=== PATIENT | male | born 1975 | race Caucasian/White ===

== ENCOUNTER 2023-06-16 09:18 | Outpatient (OUT) | payer OTHER, SELFPAY ==
[2023-06-16 09:37] LABS: Basophils Absolute Auto 0.1 10^3/uL (0.0-0.1); Basophils Percent Auto 0.5 % (0.2-2.0); Eosinophils Absolute Auto 0.3 10^3/uL (0.0-0.7); Eosinophils Percent Auto 2.6 % (0.9-7.0); Hemoglobin 16.2 g/dL (14.0-18.0); Immature Granulocytes Abs Auto 0.04 10^3/uL (0.00-0.03); Immature Granulocytes Pct Auto 0.4 % (0.0-0.5); Lymphocytes Absolute Auto 2.9 10^3/uL (1.2-3.8); Lymphocytes Percent Auto 26.8 % (20.5-60.0); Mean Corpuscular HGB Conc 33.1 g/dL (29.9-35.2); Mean Corpuscular Hemoglobin 31.8 pg (25.9-34.0); Mean Corpuscular Volume 96.3 fL (80.0-94.0); Monocytes Absolute Auto 0.8 10^3/uL (0.3-0.8); Monocytes Percent Auto 7.3 % (1.7-12.0); Neutrophils Absolute Auto 6.8 10^3/uL (1.4-6.5); Neutrophils Percent Auto 62.4 % (43.0-75.0); Platelet Count 241 10^3/uL (150-450); Red Blood Count 5.09 10^6/uL (4.70-6.10); Red Cell Distribution Width 12.9 % (11.0-15.0); White Blood Count 10.9 10^3/uL (4.0-11.0)
[2023-06-16 09:54] LABS: Estimated Average Glucose 166 mg/dL; Glycohemoglobin A1C 7.4 % (4.5-6.2)
[2023-06-16 10:57] LABS: Anion Gap 10.6; BUN Creatinine Ratio 19.4; Calcium 8.9 mg/dL (8.5-10.1); Carbon Dioxide 28.3 mmol/L (21.0-32.0); Chloride 102 mmol/L (98-107); Estimated GFR (African America >60 (>=60); Estimated GFR (Non-African Ame >60 (>=60); Glucose 256 mg/dL (74-106); Potassium 3.9 mmol/L (3.5-5.1); Sodium 137 mmol/L (136-145); Thyroid Stimulating Hormone 1.093 uIU/mL (0.358-3.740)
== END 2023-06-16 09:19 | disposition home or self-care (01) ==
LOC: LAB 09:24
PROVIDERS: PCP Family Medicine; Visit Provider Family Medicine
DX: E10.9 Type 1 diabetes mellitus without complications (principal)
CPT/HCPCS: 36415; 80048; 83036; 84443; 85025

== ENCOUNTER 2024-12-14 13:58 | Outpatient (OUT) | payer OTHER, SELFPAY ==
--- OUTSIDE RECORDS SUMMARY | 2024-12-14 14:01 | XMS_ITS | Clinical Summary ---
Author Organization [facility] Address [address] [place] [address] Phone Care Team Providers Care Heating And Ventilating Tender Name Role Phone Leonor Duncan MD Primary Care Provider [phone] Allergies No known active allergies Medications lisinopril 20 mg tablet Take 1 tablet (20 mg) by mouth once daily. Active insulin asp prt-insulin aspart (NovoLOG Mix 70-30 U-100 Insuln) 100 unit/mL (70-30) injection Inject under the skin. Take as directed per insulin instructions. Active insulin glargine (Lantus U-100 Insulin) 100 unit/mL injection Inject under the skin. Take as directed per insulin instructions. Active carvedilol (Coreg) 6.25 mg tabletIndications :Essential hypertension Take 1 tablet (6.25 mg) by mouth 2 times a day with meals. 60 tablet 11 Active Active Problems Problem Noted Date Diagnosed Date Smoker 08/05/2023 Insulin dependent type 1 diabetes mellitus (Mult i) 08/05/2023 Essential hypertension 08/05/2023 Medication course changed 08/05/2023 Palpitations 08/05/2023 Uncontrolled hypertension 08/05/2023 Shortness of breath 08/05/2023 Family History Medical History Relation Name Comments No Known Problems Brother Heart attack Father No Known Problems Mother No Known Problems Sister Relation Name Status Comments Brother Father Mother Sister Social History Tobacco Use Types Packs/Day Years Used Date Smoking Tobacco: Every Day Cigarettes Smokeless Tobacco: Never Tobacco Cessation:Ready to Q uit: No; Counseling Given: Yes Alcohol Use Standard Drinks/Week Comments Yes 0 (1 standard drink = 0.6 oz pur e alcohol) socially Sex and Gender Information Value Date Recorded Sex Assigned at Not on file Legal Sex Male 10:08 PM EST Gender Identity Not on file Sexual Orientation Not on file Last Filed Vital Signs Vital Sign Reading Time Taken Comments Blood Pressure 162/92 08/20/2023 7:45 AM EST Pulse 77 08/05/2023 9:56 AM EST Temperature - - Respiratory Rate - - Oxygen Saturation - - Inhaled Oxygen Concentration - - Weight 73.9 kg (163 lb) 08/20/2023 7:45 AM EST Height 175.3 cm (5' 9 ) 08/20/2023 7:45 AM EST Body Mass Index 24.07 08/20/2023 7:45 AM EST Plan of Treatment Health Maintenance Due Date Last Done Comments CT Colonography 1973 Colonoscopy 1973 Colorectal Cancer Screening 1973 Diabetes: Celiac Disease Screening 1973 Diabetes: Hemoglobin A1C 1973 Diabetes: Urine Protein Screening 1973 FIT-DNA (Cologuard) 1973 FIT 1973 HIV Screening 1973 Lipid Panel 1973 Sigmoidoscopy 1973 TSH Level 1973 Vitamin B-12 1973 Yearly Adult Physical 1973 MMR Vaccines (1 of 1 - Stand mark series) 1974 Diabetes: Retinopathy Screening 10/14/1983 Hepatitis C Screening 10/14/1991 Hepatitis B Vaccines (1 of 3 - 19+ 3-dose series) 1992 Pneumococcal Vaccine (1 of 2 - PCV) 1992 DTaP/Tdap/Td Vaccines (1 - Tdap) 10/14/1995 Zoster Vaccines (1 of 2) 10/14/2023 COVID-19 Vaccine (1 - 2023-2 5 season) 2024 Influenza Vaccine (Season Ended) 2025 HIB Vaccines Aged Out No longer eligi ble based on patient's age to complete this topic HPV Vaccines Aged Out No longer eligi ble based on patient's age to complete this topic Hepatitis A Vaccines Aged Out No long er eligible based on patient's age to complete this topic IPV Vaccines Aged Out No longer eligi ble based on patient's age to complete this topic Meningococcal Vaccine Aged Out No conchita amanda eligible based on patient's age to complete this topic Rotavirus Vaccines Aged Out No longer eligible based on patient's age to complete this topic Insurance Member Subscriber Plan / Payer (Ef fective 2023-Present) Name:Kristian Coburn Relation to Subscriber:Self Name:Kristian Coburn Payer ID:Not on file Type:Not on file Address: [id number] [facility] MED Member Subscriber Plan / Payer (Ef fective 2023-Present) Name:Almas Kristian Jt Relation to Subscriber:Self Name:Kristian Coburn Payer ID:Not on file Type:Not on file Address: [id number] [facility] MED Care Teams Heating And Ventilating Tender Relationship Specialty Start Date End Date Leonor Duncan MD [address] [place] [address] PCP - General Family Medicine 08/05/23
[2024-12-14 14:29] LABS: Estimated Average Glucose 160 mg/dL; Glycohemoglobin A1C 7.2 % (4.5-6.2)
[2024-12-14 14:50] LABS: Thyroid Stimulating Hormone 0.862 uIU/mL (0.358-3.740)
[2024-12-14 15:30] LABS: Prostate Specific Antigen Scrn 0.68 ng/mL (<=4.00)
[2024-12-14 15:38] LABS: Free T4 0.84 ng/dL (0.76-1.46)
[2024-12-15 04:07] LABS: Vitamin B12 336 pg/mL (232-1245)
== END 2024-12-14 13:59 | disposition home or self-care (01) ==
LOC: LAB 14:00
PROVIDERS: PCP Family Medicine; Visit Provider Family Medicine
DX: E10.59 Type 1 diabetes mellitus with other circulatory complications (principal); R53.83 Other fatigue; Z12.5 Encounter for screening for malignant neoplasm of prostate; H53.8 Other visual disturbances; R10.9 Unspecified abdominal pain
CPT/HCPCS: 36415; 82607; 82728; 82746; 83036; 84439; 84443; G0103

== ENCOUNTER 2025-02-24 07:32 | Outpatient (OUT) | payer OTHER, SELFPAY ==
--- OUTSIDE RECORDS SUMMARY | 2025-02-24 07:36 | XMS_ITS | Clinical Summary ---
Author Organization [facility] Address [address] [place] [address] Phone Care Team Providers Care Machine Operator Packaging Name Role Phone Leonor Duncan MD Primary Care Provider [phone] Allergies No known active allergies Medications lisinopril [...] 1992 DTaP/Tdap/Td Vaccines (1 - Tdap) 10/14/1995 PSA Prostate Cancer Screening 10/14/2023 Zoster Vaccines (1 of 2) 10/14/2023 COVID-19 Vaccine (1 - 2023-2 5 season) 2024 Influenza Vaccine (#1) 2025 HIB Vaccines Aged Out No longer [...] patient's age to complete this topic Insurance [facility] [employer] MED [employer] MED Care Teams Machine Operator Packaging Relationship Specialty Start Date End Date Leonor Duncan MD [address] [place] [address] PCP - General Family Medicine 08/05/23
--- OUTSIDE RECORDS SUMMARY | 2025-02-24 07:36 | XMS_ITS | Clinical Summary ---
Author Organization [facility] Address [address] [place] [address] Care Team Providers Care Glue Maker Name Role Phone Unallocated, Noms Provider Primary Care Provi lacie Allergies Active Allergy Reactions Criticality Noted Date Comments Oxycodone-Acetaminophen Shortness of breath High 10/2023 Medications Insulin Glargine (LANTUS SC) Lantus Active insulin aspart protamine-insul in aspart (NovoLOG Mix 70-30) (70-30) 100 UNIT/ML injection Inject under the skin Active lisinopril 20 MG tablet TAKE 1 TABLET BY MOUTH EVERY DAY FOR 90 DAYS Active fluticasone (Flonase) 50 MCG/ACT nasal sprayIndication s:Non-recurrent acute serous otitis media of both ears Administer 2 sprays into each nostril Daily as needed for rhinitis Shake gently. Before first use, prime pump. After use, clean tip and replace cap. 16 g Active Social History Tobacco Use Types Packs/Day Years Used Date Smoking Tobacco: Never Assessed Sex and Gender Information Value Date Recorded Sex Assigned at Not on file Legal Sex Male 7:14 PM EDT Gender Identity Not on file Sexual Orientation Not on file Last Filed Vital Signs Vital Sign Reading Time Taken Comments Blood Pressure 120/80 11/27/2023 10:01 AM EDT Pulse 80 11/27/2023 10:01 AM EDT Temperature 36.7 C (98 F) 11/27/2023 10:01 AM EDT Respiratory Rate - - Oxygen Saturation 98% 11/27/2023 10:01 AM EDT Inhaled Oxygen Concentration - - Weight 76.7 kg (169 lb) 11/27/2023 10:01 AM EDT Height 172.7 cm (5' 8 ) 2022 12:00 PM EDT Body Mass Index 25.7 2022 12:00 PM EDT Plan of Treatment Health Maintenance Due Date Last Done Comments CT Colonography 1973 Colonoscopy 1973 Colorectal Cancer Screening 1973 FIT-DNA 1973 FIT 1973 FOBT 1973 Sigmoidoscopy 1973 Influenza Vaccine (#1) 2025 Insurance [employer] Care Teams Glue Maker Relationship Specialty Start Date End Date Unallocated, Noms MD Gray [address] [place], [place] [id number] PCP - General Family Medicine 11/27/23
--- OUTSIDE RECORDS SUMMARY | 2025-02-24 07:36 | XMS_ITS | CCD ---
Author Organization [facility] Inform ion Partnership [facility] Care Team Providers Care Client Relations Representative Name Role Phone NO FAMILY, PHYSICIAN Primary Care Provider Unava DENY Conte Emergency Provider Leonor Cardozo Unavailable Odin Wallace Unavailable Leonor Cardozo MD Primary Care Provider KJ DOSHI Attending Unavailable LEONOR CARDOZO Primary Care UnavailKJ Fair Referring Unavailable KJ DOSHI Referring Unavailable LEONOR CARDOZO Primary Care Unavaila VINCENT Cherry Attending Unavailable KJ DOSHI Referring Unavailable LEONOR CARDOZO Primary Care Unavailable Ellie Cardoza Attending Unavailable Ellie Cardoza Admitting Unavailable NO FAMILY, PHYSICIAN Primary Care Unavailable Leonor Cardozo MD Primary Care Provider [phone] Leonor Cardozo MD Attending Provider [phone] Allergies Allergy Classification Reported Allergen(s) Allergy Type Date of Onset Reaction(s) Facility (4 sources) Acetaminophen; Translations: [acetaminophen] Drug Allergy 06-14-20 Anaphylaxis [facility] (4 sources) oxyCODONE; Translations: [oxycodone] Drug Allergy 06-14-20 Anaphylaxis [facility] (16 sources) Acetaminophen / oxyCODONE Drug Allergy Unknown [facility] Other (2 sources) patient allergy list reviewed by nurse or physicia Propensity to adverse reactions 06-17-20 15 Comment:Done [facility] Other Medications Current Medications Medication Drug Class(es) Dates Sig (Normalized) Sig (Original) amoxicillin 875 mg / clavulanate 125 mg oral tablet (2 sources) Penicillin-class Antibacterial Start: 03-03-2023 take 1 tablet by mouth every twelve hours azithromycin 250 mg oral tablet (4 sources) Macrolide Antimicrobial Start: 11-23-2022 carvedilol 6.25 mg oral tablet (3 sources) alpha-Adrenergic [place], beta-Adrenergic [place] Start: 08-05-2023 End: 08-04-2024 take 1 tablet by mouth twice daily at mealtime carvedilol (Coreg) 6.25 mg tablet Indications: Essential hypertension Take 1 tablet (6.25 mg) by mouth 2 times a day with meals. 60 tablet 11 08/05/2023 08/04/2024 Active fluticasone propionate 0.05 mg/actuat metered dose nasal spray (2 sources) Corticosteroid Start: 03-03-2023 take 1 spray(s) nasal route once daily insulin aspart protamine, human 70 unt/ml / insulin aspart, human 30 unt/ml injectable suspension (3 sources) Insulin Analog insulin asp prt-insulin aspart (NovoLOG Mix 70-30 U-100 Insuln) 100 unit/mL (70-30) injection Inject under the skin. Take as directed per insulin instructions. 0 Active Insulin Aspart U-100 (Novolog U-100 Insulin Aspart) 100 unit/mL solution (8 sources) Start: 07-07-2024 inject 60 [IU] by subcutaneous injection three times daily Insulin Aspart U-100 (Novolog U-100 Insulin Aspart) 100 unit/mL solution Active 60 UNIT SUBCUT Three times daily 162 July 07, 2024 12:32pm per sliding scale Start: 07-07-2024 End: 07-07-2024 inject 60 [IU] by subcutaneous injection three times daily Insulin Aspart U-100 (Novolog U-100 Insulin Aspart) 100 unit/mL solution Discontinued 60 UNIT SUBCUT Three times daily 54 July 07, 2024 11:31am July 07, 2024 12:33pm per sliding scale Start: 07-04-2024 End: 07-07-2024 inject 30 [IU] by subcutaneous injection three times daily Insulin Aspart U-100 (Novolog U-100 Insulin Aspart) 100 unit/mL solution Discontinued 30 UNIT SUBCUT Use as Directed July 04, 2024 9:50am July 07, 2024 11:32am 30 units TID sliding scale as directed Start: 06-27-2024 End: 07-04-2024 inject 30 [IU] by subcutaneous injection three times daily Insulin Aspart U-100 (Novolog U-100 Insulin Aspart) 100 unit/mL solution Discontinued 1 sliding scale dose SUBCUT Use as Directed June 27, 2024 5:07pm July 04, 2024 9:51am 30 units TID sliding scale as directed Start: 03-13-2024 End: 06-27-2024 inject 20 [IU] by subcutaneous injection three times daily Insulin Aspart U-100 (Novolog U-100 Insulin Aspart) 100 unit/mL solution Discontinued 1 sliding scale dose SUBCUT Use as Directed March 13, 2024 9:46am June 27, 2024 5:08pm 20 units TID sliding scale as directed Start: 10-23-2023 End: 03-13-2024 inject 20 [IU] by subcutaneous injection three times daily Insulin Aspart U-100 (Novolog U-100 Insulin Aspart) 100 unit/mL solution Discontinued 1 sliding scale dose SUBCUT Use as Directed October 23, 2023 9:25am March 13, 2024 9:46am 20 units TID sliding scale as directed Start: 06-14-2022 End: 10-23-2023 inject 20 [IU] by subcutaneous injection three times daily Insulin Aspart U-100 (Novolog U-100 Insulin Aspart) 100 unit/mL solution Discontinued 1 sliding scale dose SUBCUT Use as Directed June 14, 2022 1:00am October 23, 2023 9:25am 20 units TID sliding scale as directed Start: 06-14-2022 inject 20 [IU] by marsh bcutaneous injection three times daily Insulin Aspart U-100 (Novolog U-100 Insulin Aspart) 100 unit/mL solution Active 1 sliding scale dose SUBCUT Use as Directed June 14, 2022 12:00am 20 units TID sliding scale as directed insulin aspart, human 100 unt/ml injectable solution (20 sources) Insulin Analog Start: 07-07-2024 End: 02-01-2025 inject 60 [IU] by subcutaneous injection three times daily Insulin Aspart U-100 (Novolog U-100 Insulin Aspart) 100 unit/mL solution Active 60 UNIT SUBCUT Three times daily 162 90 February 01, 2025 10:39am per sliding scale Complies with drug therapy Start: 06-27-2024 End: 07-07-2024 inject 30 [IU] by subcutaneous injection three times daily Insulin Aspart U-100 (Novolog U-100 Insulin Aspart) 100 unit/mL solution Discontinued 30 UNIT SUBCUT Use as Directed July 04, 2024 9:50am July 07, 2024 11:32am 30 units TID sliding scale as directed Start: 06-14-2022 End: 06-27-2024 inject 20 [IU] by subcutaneous injection three times daily Insulin Aspart U-100 (Novolog U-100 Insulin Aspart) 100 unit/mL solution Discontinued 1 sliding scale dose SUBCUT Use as Directed March 13, 2024 9:46am June 27, 2024 5:08pm 20 units TID sliding scale as directed NovoLOG 100 UNIT /ML as directed Injection tid for 90 days 4 vials/month - uses up to 60 units/day E10.9 Active NovoLOG 100 UNIT /ML as directed Injection tid for 90 days 4 vials/month - uses up to 60 units/day E10.9 Active NovoLOG 100 UNIT /ML as directed Injection Active insulin glargine 100 unt/ml injectable solution (15 sources) Insulin Analog Start: 03-13-2024 End: 02-14-2025 inject 20 [IU] by subcutaneous injection twice daily Insulin Glargine (Lantus U-100 Insulin) 100 unit/mL solution Active 0 .ROUTE .COMPLEX February 14, 2025 2:12pm INJECT 20 UNITS TWICE DAILY SUBCUTANEOUSLY Complies with drug therapy Start: 02-28-2024 End: 03-13-2024 inject 15 [IU] by subcutaneous injection twice daily Insulin Glargine (Lantus U-100 Insulin) 100 unit/mL solution Discontinued 0 .ROUTE .COMPLEX February 28, 2024 11:34am March 13, 2024 9:47am INJECT 15 UNITS SUBCUTANEOUSLY TWICE DAILY Start: 02-28-2024 End: 02-28-2024 inject 1 [IU] by subcutaneous injection twice daily Insulin Glargine (Lantus U-100 Insulin) 100 unit/mL solution Discontinued 1 UNIT SUBCUT Twice daily February 28, 2024 12:00am February 28, 2024 11:34am Start: 06-16-2023 inject 15 [IU] by marsh bcutaneous injection twice daily Lantus 100 UNIT/ML 15 units Subcutaneous twice daily for 30 days May, Active insulin glargine (Lantus U-100 Insulin) 100 unit/mL injection Inject under the skin. Take as directed per insulin instructions. 0 Active Insulin Glargine (Lantus U-100 Insulin) 100 unit/mL solution (4 sources) Start: 09-08-2024 inject 20 [IU] by subcutaneous injection twice daily Insulin Glargine (Lantus U-100 Insulin) 100 unit/mL solution Active 0 .ROUTE .COMPLEX September 08, 2024 1:43pm INJECT 20 UNITS TWICE DAILY SUBCUTANEOUSLY Start: 06-20-2024 End: 09-08-2024 inject 20 [IU] by subcutaneous injection twice daily Insulin Glargine (Lantus U-100 Insulin) 100 unit/mL solution Discontinued 0 .ROUTE .COMPLEX June 20, 2024 9:24am September 08, 2024 1:43pm INJECT 20 UNITS TWICE DAILY SUBCUTANEOUSLY Start: 03-13-2024 End: 06-20-2024 inject 20 [IU] by subcutaneous injection twice daily Insulin Glargine (Lantus U-100 Insulin) 100 unit/mL solution Discontinued 0 .ROUTE .COMPLEX 2 March 13, 2024 9:47am June 20, 2024 9:24am INJECT 20 UNITS SUBCUTANEOUSLY TWICE DAILY Start: 02-28-2024 End: 02-28-2024 inject 1 [IU] by subcutaneous injection twice daily Insulin Glargine (Lantus U-100 Insulin) 100 unit/mL solution Discontinued 1 UNIT SUBCUT Twice daily February 28, 2024 12:00am February 28, 2024 11:34am Lantus 15 units (16 sources) Lantus 15 units 0.1 ml Subcutaneous AM&PM for 90 days Active Lantus 15 units 0.1 ml Subcutaneous AM&PM for 30 day(s) Active lisinopril 20 mg oral tablet (7 sources) Angiotensin Converting Enzyme Inhibitor Start: 12-13-2024 take 1 tablet by mouth once daily Lisinopril 20 mg tablet Active 1 TAB PO Daily December 13, 2024 12:00am Free[employer] tablet Orally Once a day; Note: Source Status: Refill; Refills: 1; Qty: 90 Tablet; Provider: Perla Waters Complies with drug therapy Start: 07-28-2023 take 1 tablet by eddie th every twenty-four hours Lisinopril 20 MG 1 tablet Orally Once a day for 30 day(s) Jul, Active magnesium oxide 400 mg oral tablet (3 sources) Start: 08-05-2023 End: 08-04-2024 take 1 tablet by mouth once daily magnesium oxide (Mag-Ox) 400 mg (241.3 mg magnesium) tablet Indications: Essential hypertension , Type 1 diabetes mellitus without complication (CMS/HCC) , Palpitations Take 1 tablet (400 mg) by mouth once daily. 30 tablet 11 08/05/2023 08/04/2024 Active paxlovid (300/100) 20 x 150 mg & 10 x 100mg tablet therapy pack (3 sources) Paxlovid (300/10 0) 20 x 150 MG & 10 x 100MG as directed Orally Active valACYclovir 1000 mg oral tablet (1 source) Herpesvirus Nucleoside Analog DNA Polymerase Inhibitor, Herpes Simplex Virus Nucleoside Analog DNA Polymerase Inhibitor, Herpes Zoster Virus Nucleoside Analog DNA Polymerase Inhibitor Start: 01-17-2025 Valacyclovir (Valtrex) 1 gram tablet Active 2000 MG PO Twice daily January 17, 2025 12:00am Complies with drug therapy 24 hr venlafaxine 37.5 mg extended release oral capsule (9 sources) Serotonin and Norepinephrine Reuptake Inhibitor Start: 07-24-2024 End: 01-17-2025 take 1 capsule by mouth once daily Venlafaxine 37.5 mg capsule,extended release 24hr Active 0 .ROUTE .COMPLEX January 17, 2025 12:28pm TAKE 1 CAPSULE BY MOUTH EVERY DAY Complies with drug therapy Start: 07-24-2024 End: 10-23-2024 take 1 capsule by mouth once daily Venlafaxine 37.5 mg capsule,extended release 24hr Discontinued 0 .ROUTE .COMPLEX July 24, 2024 5:43pm October 23, 2024 9:07am TAKE 1 CAPSULE BY MOUTH EVERY DAY Start: 06-27-2024 End: 07-24-2024 take 1 capsule by mouth once daily Venlafaxine (Effexor Xr) 37.5 mg capsule,extended release 24hr Discontinued 37.5 MG PO Daily June 27, 2024 5:15pm July 24, 2024 5:43pm Completed/Discontinued Medications Medication Drug Class(es) Dates Sig (Normalized) Sig (Original) atenolol 25 mg oral tablet (6 sources) beta-Adrenergic [place] take 1 tablet by mouth every twenty-four hours Atenolol 25 MG 1 tablet Orally Once a day for 30 day(s) Not-Taking atorvastatin 20 mg oral tablet (6 sources) HMG-CoA Reductase Inhibitor take 1 tablet by mouth every twenty-four hours Atorvastatin Calcium 20 MG 1 tablet Orally Once a day Not-Taking enalapril maleate 5 mg oral tablet (6 sources) Angiotensin Converting Enzyme Inhibitor take 1 tablet by mouth twice daily Enalapril Maleate 5 MG 1 tablet Orally Twice a day for 90 days Not-Taking insulin lispro 100 unt/ml injectable solution (6 sources) Insulin Analog HumaLOG 100 UNIT/ML as directed Subcutaneous Not-Taking lovastatin 40 mg oral tablet (6 sources) HMG-CoA Reductase Inhibitor take 1 tablet by mouth every twenty-four hours Lovastatin 40 MG 1 tablet with a meal Orally Once a day for 30 day(s) Not-Taking sildenafil 50 mg oral tablet (20 sources) Phosphodiesterase 5 Inhibitor Start: 02-24-2024 End: 01-19-2025 take 1 tablet by mouth once daily as needed Sildenafil 50 mg tablet Discontinued 0 .ROUTE .COMPLEX June 27, 2024 5:15pm August 01, 2024 10:53am TAKE 1 TABLET BY MOUTH DAILY NEEDED FOR SEXUAL ACTIVITY Start: 11-02-2023 End: 02-24-2024 take 1 tablet by mouth once daily as needed Sildenafil 50 mg tablet Discontinued 50 MG PO Daily as needed for sexual activity November 03, 2023 10:19am January 06, 2024 3:16pm Start: 08-13-2022 take 1 tablet by eddie th every twenty-four hours Sildenafil Citrate 50 MG 1 tablet as needed Orally Once a day for 30 day(s) Jul, Active Problems Active Problems Problem Classification Problem Date Documented Date Episodic/Chronic Abdominal pain (18 sources) Abdominal pain; Translations: [Abdominal pain] 08-31-2024 Episodic Administrative/social admission (3 sources) Repeated prescription; Translations: [Encounter for issue of repeat prescription] 06-14-2022 Episodic Anxiety disorders (2 sources) Anxiety; Translations: [Anxiety disorder, unspecified] 06-28-2024 Chronic Blindness and vision defects (2 sources) Blurring of visual image; Translations: [Other visual disturbances] 08-31-2024 Episodic Chronic obstructive pulmonary disease and bronchiectasis (1 source) Bronchitis, not specified as acute or chronic Episodic Conditions associated with dizziness or vertigo (3 sources) Dizziness; Translations: [Dizziness and giddiness] 09-19-2024 Episodic Diabetes mellitus without complication (20 sources) Diabetes mellitus; Translations: [Type 2 diabetes mellitus without complications] Onset: 08-04-2013 06-14-2022 Chronic Essential hypertension (9 sources) Essential hypertension; Translations: [Essential (primary) hypertension] Onset: 08-05-2023 08-05-2023 Chronic Malaise and fatigue (5 sources) Fatigue; Translations: [Other fatigue] 12-14-2024 Episodic Nonspecific chest pain (1 source) Chest pain, unspecified Episodic Other aftercare (4 sources) Treatment changed; Translations: [Other nursing home (current) drug therapy] Onset: 08-05-2023 08-05-2023 Episodic Other aftercare (2 sources) Other nursing home (current) drug therapy; Translations: [Other intermediate school teacher (current) drug therapy] Onset: 08-05-2023 Episodic Other circulatory disease (2 sources) Elevated blood-pressure reading without diagnosis of hypertension; Translations: [Elevated blood-pressure reading, without diagnosis of hypertension] Episodic Other male genital disorders (18 sources) Secondary erectile dysfunction; Translations: [Erectile dysfunction due to diseases classified elsewhere] 06-28-2024 Chronic Other male genital disorders (3 sources) Erectile dysfunction due to diseases classified elsewhere Chronic Other nutritional; endocrine; and metabolic disorders (2 sources) Body mass index 25-29 - overweight; Translations: [Body mass index (BMI) 28.0-28.9, adult] Episodic Other screening for suspected conditions (not mental disorders or infectious disease) (4 sources) Patient encounter status; Translations: [Encounter for screening for malignant neoplasm of prostate] 12-14-2024 Episodic Residual codes; unclassified (1 source) Other specified postprocedural states Episodic Residual codes; unclassified (2 sources) Family history of stroke; Translations: [Family history of stroke] Episodic Substance-related disorders (6 sources) Smoker; Translations: [Nicotine dependence, unspecified, uncomplicated] Onset: 08-05-2023 08-05-2023 Chronic Past or Other Problems Problem Classification Problem Date Documented Da te Episodic/Chronic Cardiac dysrhythmias (10 sources) Palpitations; Translations: [Palpitations] Onset: 08-05-2023 08-05-2023 Episodic Other lower respiratory disease (8 sources) Dyspnea; Translations: [Shortness of breath] Onset: 08-05-2023 08-05-2023 Episodic Other lower respiratory disease (2 sources) Shortness of breath; Translations: [Shortness of breath] Onset: 08-05-2023 Episodic Other upper respiratory infections (2 sources) Acute sinusitis; Translations: [Acute sinusitis, unspecified] Onset: 08-04-2013 Episodic Viral infection (2 sources) Herpes zoster without complication; Translations: [Zoster without complications] Onset: 03-01-2015 Episodic Viral infection (1 source) COVID-19 Results Test Name Value Interpretation Reference Range Facility Glucose mean value [Mass/vol ume] in Blood Estimated from glycated hemoglobinon 12-14-2024 Average glucose Estimated from glycated hemoglobin (Bld) [Mass/Vol] 160 mg/dL [facility] Hemoglobin A1c percentageon 12-14-2024 HbA1c (Bld) [Mass fraction] 7.2 % High 4.5-6.2 [facility] Comment on above: ADA RECOMMENDED LIMI T 4.0 - 6.0ADA THERAPEUTIC TARGET < 7.0ACTION SUGGESTED> 7.0 Laboratory - Chemistry and C hemistry - challengeon 12-14-2024 Cobalamin (Vitamin B12) [Mass/Vol] 336 pg/mL [id number] [facility] Comment on above: Performed at: [address] [id number] Director: Ck Hernandez PhD, Phone: [phone] Ferritin [Mass/Vol] 187.0 ng/mL 26.0-388.0 [facility] Free T4 [Mass/Vol] 0.84 ng/dL 0.76-1.46 [facility] TSH Qn 0.862 m[IU]/L 0.358-3.740 [facility] No Panel Informationon 12-14 Folate 17.00 ng/mL 8.60-58.90 [facility] Prostate Specific Antigen Screen 0.68 ng/mL <=4.00 [facility] TRANSTHORACIC ECHO (TTE) COM PLETEon 08-20-2023 TRANSTHORACIC ECHO (TTE) COMPLETE [facility] [address], [address], [place] [address] TRANSTHORACIC ECHOCARDIOGRAM REPORT Patient Name: FABRICIO JOHN Gonsalo Physician: [id number] Adal Elizabeth MD Study Date: 08/20/2023 Ordering Provider: [id number] KJ DOSHI MRN/PID: [id number] Fellow: Nurse: Date of /Age: 3 1975 / 47 years Group Social Worker: Rissa Rice RDCS, RVT Gender: M Additional Staff: Height: 175.26 cm Admit Date: Weight: 73.94 kg Admission Status: BSA: 1.89 m2 Department Location: [facility] Blood Pressure: 136 /74 mmHg Study Type: TRANSTHORACIC ECHO (TTE) COMPLETE Diagnosis/ICD: Shortness of breath-R06.02; Palpitations-R00.2 Indication: Diabetes, HTN, Tobacco Abuse CPT Codes: Echo Complete w Full [id number] Study Detail: The following Echo studies were performed: 2D, M-Mode, Doppler and color flow. PHYSICIAN INTERPRETATION: Left Ventricle: Left ventricular systolic function is low normal, with an estimated ejection fraction of 50%. There is global hypokinesis of the left ventricle with minor regional variations. The left ventricular cavity size is normal. Spectral Doppler shows a normal pattern of left ventricular diastolic filling. Left Atrium: The left atrium is normal in size. Right Ventricle: The right ventricle is normal in size. There is normal right ventricular global systolic function. Right Atrium: The right atrium is normal in size. Aortic Valve: The aortic valve is trileaflet. There is no evidence of aortic valve regurgitation. The peak instantaneous gradient of the aortic valve is 7.1 mmHg. The mean gradient of the aortic valve is 3.0 mmHg. Mitral Valve: The mitral valve is normal in structure. There is no evidence of mitral valve regurgitation. Tricuspid Valve: The tricuspid valve is structurally normal. No evidence of tricuspid regurgitation. Pulmonic Valve: The pulmonic valve is structurally normal. There is trace pulmonic valve regurgitation. Pericardium: There is no pericardial effusion noted. Aorta: The aortic root is normal. CONCLUSIONS: 1. Left ventricular systolic function is low normal with a 50% estimated ejection fraction. 2. There is global hypokinesis of the left ventricle with minor regional variations. QUANTITATIVE DATA SUMMARY: 2D MEASUREMENTS: Normal Ranges: Ao Root d: 3.10 cm (2.0-3.7cm) LAs: 3.60 cm (2.7-4.0cm) RVIDd: 2.70 cm (0.9-3.6cm) IVSd: 1.00 cm (0.6-1.1cm) LVPWd: 1.00 cm (0.6-1.1cm) LVIDd: 4.70 cm (3.9-5.9cm) LVIDs: 3.00 cm LV Mass Index: 86.8 g/m2 LV % FS 36.2 % LV SYSTOLIC FUNCTION BY 2D PLANIMETRY (MOD): Normal Ranges: EF-A4C View: 49.3 % (>=55%) LV DIASTOLIC FUNCTION: Normal Ranges: MV Peak E: 0.89 m/s (0.7-1.2 m/s) MV Peak A: 0.62 m/s (0.42-0.7 m/s) E/A Ratio: 1.44 (1.0-2.2) MV lateral e' 0.11 m/s MV medial e' 0.10 m/s E/e' Ratio: 8.20 (<8.0) MITRAL VALVE: Normal Ranges: MV Vmax: 0.89 m/s (<=1.3m/s) MV peak P.1 mmHg (<5mmHg) MV mean P.0 mmHg (<48mmHg) AORTIC VALVE: Normal Ranges: AoV Vmax: 1.33 m/s (<=1.7m/s) AoV Peak P.1 mmHg (<20mmHg) AoV Mean P.0 mmHg (1.7-11.5mmHg) LVOT Max Imer: 0.75 m/s (<=1.1m/s) AoV VTI: 25.00 cm (18-25cm) LVOT VTI: 16.10 cm LVOT Diameter: 2.20 cm (1.8-2.4cm) AoV Area, VTI: 2.45 cm2 (2.5-5.5cm2) AoV Area,Vmax: 2.15 cm2 (2.5-4.5cm2) AoV Dimensionless Index: 0.64 PULMONIC VALVE: Normal Ranges: PV Max Imer: 0.8 m/s (0.6-0.9m/s) PV Max P.3 mmHg PIEDV: 1.26 m/s PADP: 9.4 mmHg [id number] Adal Elizabeth MD Electronically signed on 08/20/2023 at 8:52:35 AM Final Normal [facility] Heart TransthoracicOrdere d By: Adal Elizabeth on 08-20-2023 Aortic Valve Area by Continuity of Peak Velocity 2.15 cm2 [facility] Work Phone: Aortic Valve Area by Continuity of VTI 2.45 cm2 [facility] Work Phone: AV mn grad 3.0 mmHg [facility] Work Phone: AV pk grad 7.1 mmHg [facility] Work Phone: AV pk imer 1.33 m/s [facility] Work Phone: LV A4C EF 49.3 [facility] Work Phone: LVIDd 4.70 cm [facility] Work Phone: LVOT diam 2.20 cm [facility] Work Phone: MV avg E/e' ratio 8.20 [facility] Work Phone: MV E/A ratio 1.44 [facility] Work Phone: [facility] Work Phone: Heart Tr[facility]hor[facility]icon [address], [address] [facility], [place] [address] TRANSTHORACIC ECHOCARDIOGRAM REPORT Patient Name: FABRICIO Brush Physician: [id number] Adal Elizabeth MD Study Date: 08/20/2023 Ordering Provider: [id number] KJ DOSHI MRN/PID: [id number] Fellow: Nurse: Date of /Age: 3 1975 / 47 years Group Social Worker: Rissa Rice RDCS, RVT Gender: M Additional Staff: Height: 175.26 cm Admit Date: Weight: 73.94 kg Admission Status: BSA: 1.89 m2 Department Location: [facility] Blood Pressure: 136 /74 mmHg Study Type: TRANSTHORACIC ECHO (TTE) COMPLETE Diagnosis/ICD: Shortness of breath-R06.02; Palpitations-R00.2 Indication: Diabetes, HTN, Tobacco Abuse CPT Codes: Echo Complete w Full Doppler-[id number] Study Detail: The following Echo studies were performed: 2D, M-Mode, Doppler and color flow. PHYSICIAN INTERPRETATION: Left Ventricle: Left ventricular systolic function is low normal, with an estimated ejection fraction of 50%. There is global hypokinesis of the left ventricle with minor regional variations. The left ventricular cavity size is normal. Spectral Doppler shows a normal pattern of left ventricular diastolic filling. Left Atrium: The left atrium is normal in size. Right Ventricle: The right ventricle is normal in size. There is normal right ventricular global systolic function. Right Atrium: The right atrium is normal in size. Aortic Valve: The aortic valve is trileaflet. There is no evidence of aortic valve regurgitation. The peak instantaneous gradient of the aortic valve is 7.1 mmHg. The mean gradient of the aortic valve is 3.0 mmHg. Mitral Valve: The mitral valve is normal in structure. There is no evidence of mitral valve regurgitation. Tricuspid Valve: The tricuspid valve is structurally normal. No evidence of tricuspid regurgitation. Pulmonic Valve: The pulmonic valve is structurally normal. There is trace pulmonic valve regurgitation. Pericardium: There is no pericardial effusion noted. Aorta: The aortic root is normal. CONCLUSIONS: 1. Left ventricular systolic function is low normal with a 50% estimated ejection fraction. 2. There is global hypokinesis of the left ventricle with minor regional variations. QUANTITATIVE DATA SUMMARY: 2D MEASUREMENTS: Normal Ranges: Ao Root d: 3.10 cm (2.0-3.7cm) LAs: 3.60 cm (2.7-4.0cm) RVIDd: 2.70 cm (0.9-3.6cm) IVSd: 1.00 cm (0.6-1.1cm) LVPWd: 1.00 cm (0.6-1.1cm) LVIDd: 4.70 cm (3.9-5.9cm) LVIDs: 3.00 cm LV Mass Index: 86.8 g/m2 LV % FS 36.2 % LV SYSTOLIC FUNCTION BY 2D PLANIMETRY (MOD): Normal Ranges: EF-A4C View: 49.3 % (>=55%) LV DIASTOLIC FUNCTION: Normal Ranges: MV Peak E: 0.89 m/s (0.7-1.2 m/s) MV Peak A: 0.62 m/s (0.42-0.7 m/s) E/A Ratio: 1.44 (1.0-2.2) MV lateral e' 0.11 m/s MV medial e' 0.10 m/s E/e' Ratio: 8.20 (<8.0) MITRAL VALVE: Normal Ranges: MV Vmax: 0.89 m/s (<=1.3m/s) MV peak P.1 mmHg (<5mmHg) MV mean P.0 mmHg (<48mmHg) AORTIC VALVE: Normal Ranges: AoV Vmax: 1.33 m/s (<=1.7m/s) AoV Peak P.1 mmHg (<20mmHg) AoV Mean P.0 mmHg (1.7-11.5mmHg) LVOT Max Imer: 0.75 m/s (<=1.1m/s) AoV VTI: 25.00 cm (18-25cm) LVOT VTI: 16.10 cm LVOT Diameter: 2.20 cm (1.8-2.4cm) AoV Area, VTI: 2.45 cm2 (2.5-5.5cm2) AoV Area,Vmax: 2.15 cm2 (2.5-4.5cm2) AoV Dimensionless Index: 0.64 PULMONIC VALVE: Normal Ranges: PV Max Imer: 0.8 m/s (0.6-0.9m/s) PV Max P.3 mmHg PIEDV: 1.26 m/s PADP: 9.4 mmHg [id number] Adal Elizabeth MD Electronically signed on 08/20/2023 at 8:52:35 AM Final Adal Marr MD - 08/20/2023 [facility] [address], [address], [place] [address] TRANSTHORACIC ECHOCARDIOGRAM REPORT Patient Name: FABRICIO JHON Reading Physician: [id number] Adal Elizabeth MD Study Date: 08/20/2023 Ordering Provider: [id number] KJ DOSHI MRN/PID: [id number] Fellow: Nurse: Date of /Age: 3 1975 / 47 years Group Social Worker: Rissa Rice RDCS, RVT Gender: M Additional Staff: Height: 175.26 cm Admit Date: Weight: 73.94 kg Admission Status: BSA: 1.89 m2 Department Location: [facility] Blood Pressure: 136 /74 mmHg Study Type: TRANSTHORACIC ECHO (TTE) COMPLETE Diagnosis/ICD: Shortness of breath-R06.02; Palpitations-R00.2 Indication: Diabetes, HTN, Tobacco Abuse CPT Codes: Echo Complete w Full Doppler-[id number] Study Detail: The following Echo studies were performed: 2D, M-Mode, Doppler and color flow. PHYSICIAN INTERPRETATION: Left Ventricle: Left ventricular systolic function is low normal, with an estimated ejection fraction of 50%. There is global hypokinesis of the left ventricle with minor regional variations. The left ventricular cavity size is normal. Spectral Doppler shows a normal pattern of left ventricular diastolic filling. Left Atrium: The left atrium is normal in size. Right Ventricle: The right ventricle is normal in size. There is normal right ventricular global systolic function. Right Atrium: The right atrium is normal in size. Aortic Valve: The aortic valve is trileaflet. There is no evidence of aortic valve regurgitation. The peak instantaneous gradient of the aortic valve is 7.1 mmHg. The mean gradient of the aortic valve is 3.0 mmHg. Mitral Valve: The mitral valve is normal in structure. There is no evidence of mitral valve regurgitation. Tricuspid Valve: The tricuspid valve is structurally normal. No evidence of tricuspid regurgitation. Pulmonic Valve: The pulmonic valve is structurally normal. There is trace pulmonic valve regurgitation. Pericardium: There is no pericardial effusion noted. Aorta: The aortic root is normal. CONCLUSIONS: 1. Left ventricular systolic function is low normal with a 50% estimated ejection fraction. 2. There is global hypokinesis of the left ventricle with minor regional variations. QUANTITATIVE DATA SUMMARY: 2D MEASUREMENTS: Normal Ranges: Ao Root d: 3.10 cm (2.0-3.7cm) LAs: 3.60 cm (2.7-4.0cm) RVIDd: 2.70 cm (0.9-3.6cm) IVSd: 1.00 cm (0.6-1.1cm) LVPWd: 1.00 cm (0.6-1.1cm) LVIDd: 4.70 cm (3.9-5.9cm) LVIDs: 3.00 cm LV Mass Index: 86.8 g/m2 LV % FS 36.2 % LV SYSTOLIC FUNCTION BY 2D PLANIMETRY (MOD): Normal Ranges: EF-A4C View: 49.3 % (>=55%) LV DIASTOLIC FUNCTION: Normal Ranges: MV Peak E: 0.89 m/s (0.7-1.2 m/s) MV Peak A: 0.62 m/s (0.42-0.7 m/s) E/A Ratio: 1.44 (1.0-2.2) MV lateral e' 0.11 m/s MV medial e' 0.10 m/s E/e' Ratio: 8.20 (<8.0) MITRAL VALVE: Normal Ranges: MV Vmax: 0.89 m/s (<=1.3m/s) MV peak P.1 mmHg (<5mmHg) MV mean P.0 mmHg (<48mmHg) AORTIC VALVE: Normal Ranges: AoV Vmax: 1.33 m/s (<=1.7m/s) AoV Peak P.1 mmHg (<20mmHg) AoV Mean P.0 mmHg (1.7-11.5mmHg) LVOT Max Imer: 0.75 m/s (<=1.1m/s) AoV VTI: 25.00 cm (18-25cm) LVOT VTI: 16.10 cm LVOT Diameter: 2.20 cm (1.8-2.4cm) AoV Area, VTI: 2.45 cm2 (2.5-5.5cm2) AoV Area,Vmax: 2.15 cm2 (2.5-4.5cm2) AoV Dimensionless Index: 0.64 PULMONIC VALVE: Normal Ranges: PV Max Imer: 0.8 m/s (0.6-0.9m/s) PV Max P.3 mmHg PIEDV: 1.26 m/s PADP: 9.4 mmHg [id number] Adal Elizabeth MD Electronically signed on 08/20/2023 at 8:52:35 AM Final [facility] Work Phone: ECG 12 [place] 08-12-2023 [facility] Work Phone: XR Foot Complete Left*on XR Foot Complete Left* FINDINGS: Bone mineralization is normal. No acute fracture, dislocation or significant arthritic changes are seen. No significant joint space effusion is present. Soft tissues are without abnormal calcifications or radiopaque foreign body. No active erosive changes are identified. IMPRESSION: Normal skeletal appearance. Report reported and signed by BERNARDINO MUHAMMAD on 08/20/2022 1703 Normal [facility] [employer] Vital Signs Date Time Vital Sign Value Performing Clinician Facility 02-22-2025 15:05-0400 Body height 173.99 cm Leonor Cardozo MD Work Phone: [facility] 02-22-2025 15:05-0400 Body mass index (BMI) [Ratio] 24.7 kg/m2 Leonor Cardozo MD Work Phone: [facility] 02-22-2025 15:05-0400 Body weight 74.89 kg Leonor Cardozo MD Work Phone: [facility] 02-22-2025 15:05-0400 Diastolic blood pressure 70 mm[Hg] Leonor Cardozo MD Work Phone: [facility] 02-22-2025 15:05-0400 Heart rate 79 /min Leonor Cardozo MD Work Phone: [facility] 02-22-2025 15:05-0400 Systolic blood pressure 147 mm[Hg] Leonor Cardozo MD Work Phone: [facility] 12-14-2024 13:07-0400 Body height 173.99 cm [facility] 12-14-2024 13:07-0400 Body mass index (BMI) [Ratio] 25.3 kg/m2 [facility] 12-14-2024 13:07-0400 Body weight 76.77 kg [facility] 12-14-2024 13:07-0400 Diastolic blood pressure 92 mm[Hg] [facility] 12-14-2024 13:07-0400 Heart rate 91 /min [facility] 12-14-2024 13:07-0400 Systolic blood pressure 148 mm[Hg] [facility] 08-20-2023 07:45-0500 Body height 175.[address] 08-20-2023 07:45-0500 Body mass index (BMI) [Ratio] 24.07 kg/m2 [address] 08-20-2023 07:45-0500 Body weight 73.[address] 08-20-2023 07:45-0500 Diastolic blood pressure 92 mm[Hg] [address] 08-20-2023 07:45-0500 Systolic blood pressure 162 mm[Hg] [address] 08-05-2023 10:04-0500 Diastolic blood pressure 98 mm[Hg] Kj Doshi MD Work Phone: [facility] 08-05-2023 10:04-0500 Systolic blood pressure 156 mm[Hg] Kj Doshi MD Work Phone: [facility] 08-05-2023 09:56-0500 Body height 175.3 cm Kj Doshi MD Work Phone: [facility] 08-05-2023 09:56-0500 Body mass index (BMI) [Ratio] 24.07 kg/m2 Kj Doshi MD Work Phone: [facility] 08-05-2023 09:56-0500 Body weight 73.94 kg Kj Doshi MD Work Phone: [facility] 08-05-2023 09:56-0500 Heart rate 77 /min Kj Doshi MD Work Phone: [facility] 07-05-2023 10:45-0500 Body height 173.99 cm Leonor Cardozo Other [facility] Other 07-05-2023 10:45-0500 Body mass index (BMI) [Ratio] 23.97 kg/m2 Leonor Cardozo Other [facility] Other 07-05-2023 10:45-0500 Body temperature 99.6 [degF] Leonor Cardozo Other [facility] Other 07-05-2023 10:45-0500 Body weight 72.58 kg Leonor Cardozo Other [facility] Other 07-05-2023 10:45-0500 Diastolic blood pressure 89 mm[Hg] Leonor Cardozo Other [facility] Other 07-05-2023 10:45-0500 Systolic blood pressure 146 mm[Hg] Leonor Cardozo Other [facility] Other 06-16-2023 08:45-0500 Body height 173.99 cm Leonor Cardozo Other [facility] Other 06-16-2023 08:45-0500 Body mass index (BMI) [Ratio] 23.7 kg/m2 Leonor Cardozo Other [facility] Other 06-16-2023 08:45-0500 Body weight 71.76 kg Leonor Cardozo Other [facility] Other 06-16-2023 08:45-0500 Diastolic blood pressure 83 mm[Hg] Leonor Cardozo Other [facility] Other 06-16-2023 08:45-0500 Systolic blood pressure 133 mm[Hg] Leonor Cardozo Other [facility] Other 11-23-2022 15:30-0400 Body height 173.99 cm Leonor Cardozo Other [facility] Other 11-23-2022 15:30-0400 Body mass index (BMI) [Ratio] 25.17 kg/m2 Leonor Cardozo Other [facility] Other 11-23-2022 15:30-0400 Body weight 76.2 kg Leonor Cardozo Other [facility] Other 11-23-2022 15:30-0400 Diastolic blood pressure 78 mm[Hg] Leonor Cardozo Other [facility] Other 11-23-2022 15:30-0400 SaO2% (BldA) [Mass fraction] 97 % Leonor Cardozo Other [facility] Other 11-23-2022 15:30-0400 Systolic blood pressure 124 mm[Hg] Leonor Cardozo Other [facility] Other 08-13-2022 12:30-0500 Body height 173.99 cm Leonor Cardozo Other [facility] Other 08-13-2022 12:30-0500 Body mass index (BMI) [Ratio] 24.57 kg/m2 Leonor Cardozo Other [facility] Other 08-13-2022 12:30-0500 Body weight 74.39 kg Leonor Cardozo Other [facility] Other 08-13-2022 12:30-0500 Diastolic blood pressure 82 mm[Hg] Leonor Cardozo Other [facility] Other 08-13-2022 12:30-0500 SaO2% (BldA) [Mass fraction] 98 % Leonor Cardozo Other [facility] Other 08-13-2022 12:30-0500 Systolic blood pressure 146 mm[Hg] Leonor Cardozo Other [facility] Other 06-14-2022 15:54-0500 Body height 179.07 cm PHYSICIAN NO [facility] 06-14-2022 15:54-0500 Body temperature 98.5 [degF] PHYSICIAN NO [facility] 06-14-2022 15:54-0500 Body weight 75.5 kg PHYSICIAN NO [facility] 06-14-2022 15:54-0500 Diastolic blood pressure 75 mm[Hg] PHYSICIAN NO [facility] 06-14-2022 15:54-0500 Heart rate 92 /min PHYSICIAN NO [facility] 06-14-2022 15:54-0500 Respiratory rate 18 /min PHYSICIAN NO [facility] 06-14-2022 15:54-0500 SaO2% (BldA) [Mass fraction] 96 % PHYSICIAN NO [facility] 06-14-2022 15:54-0500 Systolic blood pressure 137 mm[Hg] PHYSICIAN NO [facility] Encounters Encounter Date Encounter Type Care Provider Facility Start: 02-22-2025 End: 02-22-2025 ambulatory Leonor Cardozo MD Work Phone: [facility] Work Phone: Start: 02-22-2025 End: 02-22-2025 Patient encounter procedure Leonor Cardozo MD -[facility] Work Phone: Start: 12-14-2024 End: 12-14-2024 ambulatory [facility] Work Phone: Start: 12-14-2024 End: 12-14-2024 Patient encounter procedure [facility] Work Phone: Start: 11-27-2023 End: 11-27-2023 ambulatory VINCENT Mendoza WORKMAN Not Available Start: 08-20-2023 End: 08-20-2023 ambulatory [facility] Start: 08-20-2023 End: 08-20-2023 Subsequent hospital visit by physician Nabila Mcdowell Echo/Vasc Room 2 [facility] Comment on above: Shortness of breath; Palpitations Start: 08-20-2023 End: 08-20-2023 ambulatory [facility] Start: 08-13-2023 End: 08-13-2023 ambulatory Leonor Cardozo Other [facility] Other Start: 08-13-2023 Telephone encounter Leonor Cardozo [facility] Start: 08-05-2023 End: 08-05-2023 ambulatory [facility] Start: 08-05-2023 End: 08-05-2023 Office outpatient new 45 minutes Kj Doshi MD Work Phone: [facility] Comment on above: Smoker; Medication course changed; Essential hypertension; Type 1 diabetes mellitus without complication (CMS/HCC); Shortness of breath; Palpitations Start: 07-28-2023 End: 07-28-2023 ambulatory Leonor Cardozo Other [facility] Other Start: 07-28-2023 Telephone encounter Leonor Cardozo [facility] Start: 07-05-2023 End: 07-05-2023 ambulatory Leonor Cardozo Other [facility] Other Start: 07-05-2023 Office outpatient vi sit 15 minutes Leonor Cardozo [facility] Start: 06-30-2023 End: 06-30-2023 ambulatory Leonor Cardozo Other [facility] Other Start: 06-30-2023 Telephone encounter Leonor Perla [facility] Start: 06-18-2023 End: 06-18-2023 ambulatory Leonor Cardozo Other [facility] Other Start: 06-18-2023 Telephone encounter Leonor Perla [facility] Start: 06-16-2023 End: 06-16-2023 ambulatory Leonor Cardozo Other [facility] Other Start: 06-16-2023 Office outpatient vi sit 15 minutes Leonor Cardozo [facility] Start: 06-16-2023 Telephone encounter Leonor Perla [facility] Start: 03-08-2023 End: 03-08-2023 ambulatory Leonor Cardozo Other [facility] Other Start: 03-08-2023 Telephone encounter Leonor Perla [facility] Start: 03-03-2023 End: 03-03-2023 ambulatory Leonor Perla Other [facility] Other Start: 03-03-2023 Telephone encounter Leonor Perla [facility] Start: 11-27-2022 End: 11-27-2022 ambulatory Leonor Perla Other [facility] Other Start: 11-27-2022 Telephone encounter Leonor Perla [facility] Start: 11-23-2022 End: 11-23-2022 ambulatory Leonor Perla Other [facility] Other Start: 11-23-2022 Office outpatient vi sit 15 minutes Leonor Cardozo [facility] Start: 10-23-2022 End: 10-23-2022 ambulatory Odin Rodrigo Other [facility] Other Start: 10-23-2022 Telephone encounter Odin Rodrigo [facility] Start: 08-20-2022 End: 08-20-2022 ambulatory Leonor Cardozo Other [facility] Other Start: 08-20-2022 Telephone encounter Leonor Cardozo [facility] Start: 08-13-2022 End: 08-13-2022 ambulatory Leonor Cardozo Other [facility] Other Start: 08-13-2022 Office outpatient vi sit 15 minutes Leonor Cardozo [facility] Start: 06-30-2022 Adult health examination Cesia Cardozo Other [facility] Other Start: 06-14-2022 End: 06-14-2022 Emergency department patient visit PHYSICIAN JASS [facility] Procedures Date Procedure Procedure Detail Performing Clinician Start: 08-20-2023 HOLTER OR EVENT CARD IAC MONITOR KJ DOSHI Start: 08-20-2023 TRANSTHORACIC ECHO ( TTE) COMPLETE KJ DOSHI Start: 08-20-2023 Echo tthrc r-t 2d w/wom-mode compl spec&colr d Kj Doshi MD Work Phone: Start: 08-05-2023 ECG 12-LEAD KJ BLACKMON Start: 08-05-2023 Ecg routine ecg w/le ast 12 lds w/i&r Kj Doshi MD Work Phone: Plan of Treatment Date Care Activity Detail Author Start: 10-14-2023 Zoster Vaccines (1 of 2) Zoster Vacc mine (1 of 2) [facility] Start: 09-06-2023 End: 09-06-2023 Patient encounter procedure 09/06/2023 3:30 PM EST Office Visit [facility] [address] [place] [address] Kj Doshi MD [address] [place] [address] [address] [place], [place] [id number] [facility] Start: 08-20-2023 End: 08-20-2023 Professional / ancillary services management 08/20/2023 8:00 AM EST Ancillary Procedure [facility] [address] [place] [id number] [facility] Start: 08-20-2023 End: 08-20-2023 Patient encounter procedure 08/20/2023 7:45 AM EST [facility] [address] [place] [id number] [facility] Start: 08-05-2023 End: 08-05-2024 Holter monitor study Holter Or Event Advanced Registered Nurse Cardiac Services Routine Shortness of breath Palpitations Expected: 08/05/2023 (Approximate), Expires: 08/05/2024 [facility] Work Phone: Comment on above: Expected: 08/05/2023 (Approximate), Expires: 08/05/2024 Start: 08-05-2023 End: 08-05-2024 Lipid 1996 panel - Serum or Plasma Lipid Panel Lab Routine Medication course changed Essential hypertension Type 1 diabetes mellitus without complication ([facility]/HCC) Expected: 08/05/2023 (Approximate), Expires: 08/05/2024 [facility] Work Phone: Comment on above: Expected: 08/05/2023 (Approximate), Expires: 08/05/2024 Start: 08-05-2023 End: 08-05-2025 Heart Transthoracic Transthoracic Echo (TTE) Complete Echocardiography Routine Shortness of breath Palpitations Expected: 08/05/2023 (Approximate), Expires: 08/05/2025 [facility] Service Area Work Phone: Comment on above: Expected: 08/05/2023 (Approximate), Expires: 08/05/2025 Start: 03-26-2023 Influenza vaccination Influenza Vacc ine (#1) [facility] Start: 10-14-1995 DTaP/Tdap/Td Vaccine s (1 - Tdap) DTaP/Tdap/Td Vaccines (1 - Tdap) [facility] Start: 1992 Urine screening for protein Diabetes: Urine Protein Screening [facility] Start: 10-14-1991 Hepatitis C screening Hepatitis C Sc reening [facility] Start: 10-14-1983 Diabetic foot examination Diabetes: Foot Exam [facility] Start: 10-14-1983 Glaucoma screening Diabetes: R etinopathy Screening [facility] Start: 10-14-1979 Pneumococcal Vaccine : Pediatrics (0 to 5 Years) and At-Risk Patients (6 to 64 Years) (1 - PCV) Pneumococcal Vaccine: Pediatrics (0 to 5 Years) and At-Risk Patients (6 to 64 Years) (1 - PCV) [facility] Start: 1974 MMR Vaccines (1 of 1 - Standard series) MMR Vaccines (1 of 1 - Standard series) [facility] Start: 04-15-1974 COVID-19 Vaccine (#1) COVID-19 Vacci ne (#1) [facility] Start: 1973 Cyanocobalamin vitam in b-12 Vitamin B-12 [facility] Start: 1973 Diabetes: Celiac Dis ease Screening Diabetes: Celiac Disease Screening [facility] Start: 1973 Hemoglobin A1c measurement Diabetes: Hemoglobin A1C [facility] Start: 1973 Hepatitis B Vaccines (1 of 3 - 3-dose series) Hepatitis B Vaccines (1 of 3 - 3-dose series) [facility] Start: 1973 HIV screening HIV Screening [facility] Start: 1973 Lipid panel Lipid Panel [facility] Start: 1973 Screening for malign ant neoplasm of colon [facility] Start: 1973 Thyroid stimulating hormone measurement TSH Level [facility] Start: 1973 Yearly Adult Physical Yearly Adult P hysical [facility] Patient Education Insulin Injection [facility] Work Phone: Patient referral [facility] Work Phone: Thiamine [Moles/volu me] in Blood [facility] Payers Date Payer Category Payer Unknown [employer] [facility] [id number] 2023-Present [address] [place] [address] [id number] 2023 Private Health Insurance [id number] 2022 Self-pay 1975 Unknown [id number] 1975 Unknown [id number] 1975 Unknown [id number] 1975 Unknown [id number] Unknown Lia BUNN/AUGUST [id number] Unknown [id number] Social History Date Type Detail Facility Start: 06-14-2022 End: 07-05-2023 Tobacco smoking status [facility] Smoker (finding) [facility] Start: 1975 Sex Assigned At Male F [facility] Start: 08-05-2023 Sex Assigned At N [facility] [employer] Other Start: 07-05-2023 End: 08-05-2023 Tobacco smoking status [facility] Smokes tobacco daily [facility] Work Phone: History of tobacco use [facility] Work [facility]: Start: 08-05-2023 Cigarettes smoked current (pack per day) - Reported 0.5 [facility] Work Phone: Start: 08-05-2023 Tobacco use and exposure Smokeless tobacco non-user [facility] Work Phone: Start: 08-05-2023 Alcohol intake Current drinke r of alcohol (finding) [facility] Work Phone: Start: 08-05-2023 Alcohol Comment socially [facility] Work Phone: Start: 1975 Sex Assigned At Not on file U [facility] Work Phone: Start: 07-26-2023 End: 08-20-2023 Exposure to SARS-CoV-2 (event) Not sure [facility] Start: 12-14-2024 Sex Male (finding) [facility] Clinical Notes 08-13-2022 to 12-14-2024 Note Date & Type Note Facility 12-14-2024 Evaluation note Diagnosis Onset Date Resolution Fatigue acute December 14, 2024 1:03pm Screening PSA (prostate specific antigen) acute December 14, 2024 1 :03pm Type 1 diabetes mellitus acute December 14, 2024 1 :03pm Dizziness acute February 22 2:58pm Fatigue acute February 22 2:58pm Type 1 diabetes mellitus acute February 22, 2025 2:58pm [facility] Work Phone: 1(278) 767-970901-19-2024 Evaluation note* Encounter Date Diagnosis Assessment Notes Treatment Notes Treatment Clinical Notes Jul, Erectile disorder due to 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 Cardozo) History Of Present Illness: Fabricio John is a 47 y.o. male presenting with shortness of breath and palpitations. Patient finds it difficult to describe his symptoms. He says that he feels his heart beating in hischest, and then there is a blood barry to his head, after which the heart stops for a second. Also has exertional shortness of breath, best described as functional class II. He is only 47 years old. He continues to smoke half pack per day. His father at age 48 from coronary event. Patient has 2offsprings 23 and 9 years. Severe situational stress, going through divorce with custody issues. Has GERD symptoms Blood pressure is elevated, was started on lisinopril few days ago. Patient says that he has history of hypertension he used to be on 25 different medications, he feltthat he did not need all those medications and he just stopped all of them. Blood pressure initially 168/94. Recheck blood pressure is also elevated. Laboratory data from May 2023 showed hemoglobin of 16.2 hematocrit 49 sodium 137 potassium 3.9BUN 8 creatinine 0.93 glucose 256 GFR greater than 60 TSH 1.093 hemoglobin A1c 7.4 patient does notreport any symptoms of hypoglycemia No fever chills cough orthopnea PND or claudication no TIA or CVA type symptoms no nausea vomiting or diarrhea no headaches or blurred vision 12 point review of systems is otherwise negative or noncontributory.. Past Medical History: He has no past medical history on file. Past Surgical History: He has no past surgical history on file. Social History: He reports that he has been smoking cigarettes. He has been smoking an average of .5 packs per day.He has never used smokeless tobacco. He reports current alcohol use. He reports that he does not use drugs. Family History: Family History Problem Relation Name Age of Onset No Known Problems Mother Heart attack Father No Known Problems Sister No Known Problems Brother Allergies: Patient has no known allergies. Outpatient Medications: Current Outpatient Medications Medication Instructions carvedilol (COREG) 6.25 mg, oral, 2 times daily with meals insulin asp prt-insulin aspart (NovoLOG Mix 70-30 U-100 Insuln) 100 unit/mL (70- 30) injection subcutaneous, Take as directed per insulin instructions. insulin glargine (Lantus U-100 Insulin) 100 unit/mL injection subcutaneous, Take as directed per insulin instructions. lisinopril 20 mg, oral, Daily magnesium oxide (MAG-OX) 400 mg, oral, Daily Last Recorded Vitals: Vitals: 08/05/23 0956 08/05/23 1004 BP: (!) 168/94 (!) 156/98 BP Location: Left arm Right arm Patient Position: Sitting Sitting Pulse: 77 Weight: 73.9 kg (163 lb) Height: 1.753 m (5' 9 ) Physical Exam: GENERAL APPEARANCE: Well developed, well nourished, in no acute distress. CHEST: Symmetric and non-tender. INTEGUMENT: Skin warm and dry, without gross excoriationis or lesions. HEENT: No gross abnormalities, no jugular venous distention no carotid bruit or scleral icterus NECK: Supple, no JVD, no bruit. Thyroid not palpable. Carotid upstrokes normal. NEURO/PSHCY: Alert and oriented x3; appropriate behavior and responses and responses, with normal balance and coordination LUNGS: Clear to auscultation bilaterally; normal respiratory effort. HEART: Rate and rhythm regular with no evident murmur; no gallop appreciated. There are no rubs, clicks or heaves. ABDOMEN: Soft, nontender, no masses or bruits. MUSCULOSKELETAL: No obvious deformity identified EXTREMITIES: Warm There is no edema noted. PERIPHERAL VASCULAR: Pulses present and equally palpable; 2+ throughout. Last Labs: Reviewed, and are as noted in the initial portion of the note. Assessment/Plan 1. Smoker 2. Medication course changed Follow Up In Cardiology Lipid Panel 3. Essential hypertension Follow Up In Cardiology Lipid Panel magnesium oxide (Mag-Ox) 400 mg (241.3 mg magnesium) tablet carvedilol (Coreg) 6.25 mg tablet 4. Type 1 diabetes mellitus without complication ([facility]) Lipid Panel magnesium oxide (Mag-Ox) 400 mg (241.3 mg magnesium) tablet 5. Shortness of breath Follow Up In Cardiology ECG 12 Lead Transthoracic Echo (TTE) Complete Holter Or Event Advanced Registered Nurse 6. Palpitations Follow Up In Cardiology ECG 12 Lead Transthoracic Echo (TTE) Complete Holter Or Event Advanced Registered Nurse magnesium oxide (Mag-Ox) 400 mg (241.3 mg magnesium) tablet 7. Cardiac catheterization June 2009-LVEDP 15 mmHg no systolic gradient across the aortic valveLVEF 55 to 60% right dominant system 20 to 30% proximal LAD stenosis otherwise angiographically normal coronaries Patient with uncontrolled hypertension, history of hypertension, diabetes, nicotine dependence, severe situational stress, has been having palpitations in the setting of GERD symptoms, and also shortness of breath. Needs aggressive risk factor modification and medical therapy and further testing EKG was reviewed. There is abnormalities in the inferior and lateral leads with ST-T abnormality. Patient stopped all his medications because he did not think he needed them. Details not available. Recommendations: 1. Discussed the importance of risk factor modification and medication compliance 2. Discussed the dynamic nature of coronary artery disease and the importance of seeking prompt medical attention if new symptoms develop and we talked about some of the symptoms 3. Carvedilol 6.25 mg p.o. twice daily, continue lisinopril at current dose 4. Magnesium oxide 400 mg p.o. daily 5. Echocardiogram 6. 48-hour Holter 7. Lipid profile 8. May benefit from GERD prophylaxis-defer to primary 9. Nicotine cessation is encouraged 10. May benefit from an SSRI or BuSpar type of agent for acute situational stress 11. Follow-up after testing sooner if interval problems arise Thank you for allowing me to participate in patient's care, please do not hesitate to call if further questions arise, Sincerely, Kj Doshi MD [facility] Provider Attestation - Scribe documentation All medical record entries made by the Scribe were at my direction and personally dictated by me. Gurwinder reviewed the chart and agree that the record accurately reflects my personal performance of the history, physical exam, discussion and plan. Kimber Vance LPN [facility] Work Phone: 1(637) 414-661901-11-2024 Instructions* Patient Instructions* Kimber Vance LPN - 08/05/2023 10:00 AM EST Please bring all medicines, vitamins, and herbal supplements with you when you come to the office. Prescriptions will not be filled unless you are compliant with your follow up appointments or have a follow up appointment scheduled as per instruction of your physician. Refills should be requested at the time of your visit. EKG done in office today [facility] Work Phone: 1(365) 860-791112-11-2023 Evaluation note* Encounter Date Diagnosis Assessment Notes Treatment Notes Treatment Clinical Notes Jun, Acute COVID-19 (ICD-10 - U07.1) After visit, he bought a covid test and it was + Start paxlovid due to his chronic diabetes and quarantine based on CDC guidelines Jun, Chest pain, unspecified type (ICD-10 - R07.9) Pt agrees to referral back to [facility] that he saw in the distant past for chest pain. [facility] Other 11-24-2023 Evaluation note* Encounter Date Diagnosis Assessment Notes Treatment Notes Treatment Clinical Notes May, Type 1 diabetes mellitus without complication (ICD-10 - E10.9) [facility] Other 11-22-2023 Evaluation note* Encounter Date Diagnosis Assessment Notes Treatment Notes Treatment Clinical Notes May, Type 1 diabetes mellitus without complication (ICD-10 - E10.9) Assess labs, continue present meds. Declines endocrinology referral and is not interested in getting established w omnipod type device. [facility] Other 11-22-2023 Evaluation note* Encounter Date Diagnosis Assessment Notes Treatment Notes Treatment Clinical Notes May, Type 1 diabetes mellitus without complication (ICD-10 - E10.9) [facility] Other 05-05-2023 Evaluation note* Encounter Date Diagnosis Assessment Notes Treatment Notes Treatment Clinical Notes November, Erectile disorder due to medical condition in male (ICD-10 - N52.1) [facility] Other 05-01-2023 Evaluation note* Encounter Date Diagnosis Assessment Notes Treatment Notes Treatment Clinical Notes November, Bronchitis (ICD-10 - J40) Discussed diagnosis with patient. Patient to start Zithromax. Patient to take Zithromax daily with food as prescribed. Finish entire course of antibiotic. Increase fluids and rest. Tnyp-ius-[id number] antipyretics as needed. Warning signs and symptoms reviewed with patient today. Patient to go immediately to the ER should she experience any of these. Patient to notify office should her symptoms persist and not improve. Patient verbalizes understanding and agrees to treatment plan. [facility] Other 01-19-2023 Evaluation note* Encounter Date Diagnosis Assessment Notes Treatment Notes Treatment Clinical Notes Jul, Type 1 diabetes mellitus without complication (ICD-10 - E10.9) Due for labs. Diabetes is stable - refilled medications. Encouraged eye exam. Jul, Erectile disorder due to medical condition in male (ICD-10 - N52.1) Jul, History of cardiac cath (ICD-10 - Z98.890) [facility] Other Evaluation noteNo assessment information available [facility] Work Phone: Evaluation noteNo InformationNortHoly [facility] Other Evaluation note* Diagnosis Smoker Tobacco use disorder Medication course changed Essential hypertension Unspecified essential hypertension Type 1 diabetes mellitus without complication ([facility]) Type I (juvenile type) diabetes mellitus without mention of complication, not stated as uncontrolled Shortness of breath Palpitations [facility] encounter [facility] Work Phone: Evaluation note* Diagnosis Shortness of breath Palpitations documented in [facility] encounter [facility] Work Phone: Evaluation note* Diagnosis Onset Date Resolution Status Admit Date Fatigue acute December 14, 2024 1:03pm Screening PSA (prostate spec ific antigen) acute December 14, 2024 1 :03pm [facility] Work Phone: History general Narrative - Reported* Type Description Date Medical History Diabetes type I Medical History Diastolic blood pressure 90 mm H g or higher Medical History BMI 28.0-28.9,adult Surgical History hernia 2014 Hospitalization History SEE SURGICAL HX [facility] Other Hospital Discharge instructions Additional Instructions Return for new or worsening symptoms [facility] Work Phone: Reason for referral (narrative)No reason for referral information availableTrihealth Work Phone: Chief Complaint and Reason for Visit Chief Complaint Needs insulin Chief Complaint Admit Date medical concerns December 14, 2024 1:03p m Reason for Visit Admit Date Fatigue December 14, 2024 1:03p m Screening PSA (prostate specific antigen ) December 14, 2024 1:03pm Chief Complaint Admit Date medical concerns December 14, 2024 1:03p m Discuss Health Concerns February 22, 2025 2:58pm Reason for Visit Admit Date Fatigue December 14, 2024 1:03p m Screening PSA (prostate specific antigen ) December 14, 2024 1:03pm Type 1 diabetes mellitus December 14, 2024 1:03pm Dizziness February 22, 2025 2:58 pm Fatigue February 22, 2025 2:58 pm Type 1 diabetes mellitus February 22, 2025 2:58pm Advance Directives Advance Directive Response Recorded Date/ Time Advance Directives No May 4:18pm Advance Directive Response Recorded Date/ Time Advance Directives No May 5:18pm Summary Purpose Family History Relationship Condition Age at Onset Recorded Date/T kathy father Unknown Reason for Referral Specialty Diagnoses / Procedures Referred By Contac t Referred To Contact Cardiology Diagnoses Shortness of breath Palpitations Procedures Holter Or Event Advanced Registered Nurse Kj Doshi MD [address] [facility] [address] [place] [address] Referral ID Status Reason Start Date Expiration Date V isits Requested Visits Authorized [id number] Pending Review 08/05/2023 08/04/2024 1 1 Specialty Diagnoses / Procedures Referred By Contac t Referred To Contact Cardiology Diagnoses Shortness of breath Palpitations Procedures Transthoracic Echo (TTE) Complete CA ECHO TTHRC R-T 2D W/WOM-MODE COMPL SPEC&COLR D Kj Doshi MD [address] [place] [id number] Referral ID Status Reason Start Date Expiration Date Visits Requested Visits Authorized [id number] Pending Review Perform Procedure 08/05/2023 08/04/2024 1 1 Specialty Diagnoses / Procedures Referred By Contac t Referred To Contact Diagnoses Shortness of breath Palpitations Procedures ECG 12 Lead Kj Doshi MD [address] [place] [address] [address] [place] [address] Referral ID Status Reason Start Date Expiration Date V isits Requested Visits Authorized [id number] Authorized 08/05/2023 08/04/2024 1 1 Specialty Diagnoses / Procedures Referred By Contac t Referred To Contact Cardiology Diagnoses Medication course changed Essential hypertension Shortness of breath Palpitations Procedures Follow Up In Cardiology Kj Doshi MD [address] [place] [address] [address] [place] [address] Kj Doshi MD [address] [facility] [address] [place] [address] Referral ID Status Reason Start Date Expiration Date V isits Requested Visits Authorized [id number] Authorized 08/05/2023 08/04/2024 1 1 Reason *FU 07/21 Seen at this office 10 yrs ago. Has chest pain and tachycardia at times. DM1 Diagnosis 1 Chest pain, unspecif ied type (R07.9) Referral Organization [facility] Referring Provider First Name Leonor Referring Provider Last Name Perla Referring Provider Specialty Family Medi cine Referred Organization [facility] enter Referred Provider Kj Doshi Referred Address [address] [facility] [address] ,[place], [place],[address] Referred Provider Specialty Internal Med icine Referral Priority Routine General Notes Deloris Huerta 01:35:30 PM >received today, attachments made, notes locked, referral faxed Reason DECLINED [place] office - new onset ED Diagnosis 1 Erectile disorder du e to medical condition in male (N52.1) Referral Organization [facility] ri[facility] Referring Provider First Name Leonor Referring Provider Last Name Perla Referring Provider Specialty Family Medi cine Referred Organization [facility] Referred Provider Jona Simpson Referred Address [address] [facility] [address],[place], [place],[address] Referred Provider Specialty Urology Referral Priority Routine General Notes Deloris Huerta 11:07:16 AM >received today, notes locked and referral faxed Deloris Huerta 08/21/2022 09:11:19 AM >faxed first attempt letter Deloris Huerta 08/21/2022 01:44:19 PM >received fax that referral was received but pt is not schedule yet Deloris Huerta 08/31/2022 08:15:32 AM >faxed second attempt letter Deloris Huerta 09/01/2022 01:03:54 PM >received fax back that pt is still not scheduled. Deloris Huerta 09/07/2022 03:35:59 PM >spoke with patient, he is not scheduled, and is not sure if he wants to schedule this. I provided him Dr. Sanders office number to schedule an appt if need be. will follow up in another week Deloris Huerta 09/14/2022 08:41:23 AM >faxed third attempt letter Deloris Huerta 09/21/2022 03:20:51 PM >called and left message to see if patient scheduled his appt yet Deloris Huerta 09/28/2022 04:26:49 PM >spoke with patient, he mnetioned he is okay right now, and does not want to schedule an appt. closing referral at this time. Additional Source Comments Care Teams (unrecognized sec tion and content) Team Status: Inactive Member Role Status Dates PHYSICIAN NO FAMILY Primary Care Provider Active Ellie Cardoza PA-C Emergency Provider Active Team Status: Active Member Role Status Dates PHYSICIAN NO FAMILY Primary Care Provider Active Client Relations Representative Relationship Specialty Start Date End Date Leonor Cardozo MD [address] [place] [address] PCP - General Family Medicine 08/05/23 Client Relations Representative Relationship Specialty Start Date End Date Leonor Cardozo MD [address] [place] [address] PCP - General Family Medicine 08/05/23 Team Status: Active Member Role Status Dates Leonor Cardozo MD Primary Care Provider Active Team Status: Inactive Member Role Status Dates Leonor Cardozo MD Primary Care Provide r, Attending Provider Active Start: December 14, 2024 End: December 14, 2024 Team Status: Inactive Member Role Status Dates Leonor Cardozo MD Primary Care Provider Active Start: December 14, 2024 End: December 14, 2024 Leonor Cardozo MD Attending Provider Active St art: December 14, 2024 End: December 14, 2024 Team Status: Inactive Member Role Status Dates Leonor Cardozo MD Primary Care Provider Active Start: February 22, 2025 End: February 22, 2025 Leonor Cardozo MD Attending Provider Active St art: February 22, 2025 End: February 22, 2025 Goals (unrecognized section and content) Goals may be documented in a n alternate sectionNo InformationNo InformationNo InformationNo InformationNo InformationNo InformationNo InformationNo InformationNo InformationNo InformationNo InformationNo InformationNo InformationNo InformationNo InformationNo InformationGoals may be documented in an alternate sectionGoals may be documented in an alternate section (unrecognized sect ion and content) No Status Records FoundNo Status Records FoundNo Status Records FoundNo Status Records FoundNo Status Records Found INFORMATION SOURCE (unrecogn ized section and content) DATE CREATED AUTHOR 08/21/2022 [facility] dical Specialist DATE CREATED AUTHOR AUTHOR'S ORGANIZ ATION 08/22/2023 [facility] DATE CREATED AUTHOR AUTHOR'S ORGANIZ ATION 11/28/2023 [facility] dical Specialists EPIC DATE CREATED AUTHOR AUTHOR'S ORGANIZ ATION 04/17/2024 [facility] DATE CREATED AUTHOR AUTHOR'S ORGANIZ ATION 09/07/2024 [facility] y[facility] REASON FOR VISIT (unrecogniz ed section and content) Reason Comments New Patient Visit Shortness of breath, chest pain- Dr. Cardozo Specialty Diagnoses / Procedures Referred By Contac t Referred To Contact Diagnoses Shortness of breath Palpitations Procedures ECG 12 Lead Kj Doshi MD [address] [facility] [address] [place] [address] Referral ID Status Reason Start Date Expiration Date V isits Requested Visits Authorized [id number] Authorized 08/05/2023 08/04/2024 1 1 Specialty Diagnoses / Procedures Referred By Contac t Referred To Contact Cardiology Diagnoses Shortness of breath Palpitations Procedures Transthoracic Echo (TTE) Complete CA ECHO TTHRC R-T 2D W/WOM-MODE COMPL SPEC&COLR D Kj Doshi MD [address] [facility] [address] [place] [address] Referral ID Status Reason Start Date Expiration Date Visits Requested Visits Authorized [id number] Authorized Perform Procedure 08/05/2023 08/04/2024 1 1 FOR RECORDS PERTAINING TO PATIENTS WHO ARE OR HAVE BEEN ENROLLED IN A CHEMICAL DEPENDENCY/SUBSTANCEABUSE PROGRAM, SOME INFORMATION MAY BE OMITTED. This clinical summary was aggregated from multiple sources. Caution should be exercised in using it in the provision of clinical care. This summary normalizes information from multiple sources, and as a consequence, information in this document may materially change the coding, format and clinical context of patient data. In addition, data may be omitted in some cases. CLINICAL DECISIONS SHOULD BE BASED ON THE PRIMARY CLINICAL RECORDS. [facility] [employer] [facility]. provides no warranty or guarantee of the accuracy or completeness of information in this document.
[2025-02-24 11:03] LABS: Folate 14.70 ng/mL (8.60-58.90)
[2025-03-01 00:07] LABS: Vitamin B1 (Thiamine), Blood 133.0 nmol/L (66.5-200.0)
== END 2025-02-24 07:33 | disposition home or self-care (01) ==
LOC: LAB 07:34
PROVIDERS: PCP Family Medicine; Visit Provider Family Medicine
DX: R42 Dizziness and giddiness (principal); R53.82 Chronic fatigue, unspecified; E10.59 Type 1 diabetes mellitus with other circulatory complications
CPT/HCPCS: 36415; 82746; 83036; 84425